=== PATIENT | female | born 1975 | race Caucasian/White ===

== ENCOUNTER 2025-03-17 23:25 | Emergency (ER) | payer OTHER, SELFPAY ==
[~2025-03-17] VITALS: Ht 157.5 cm; Wt 84.1 kg
[~2025-03-17 23:25] MED LIST: NOCURR
[2025-03-18 00:01] VITALS: TEMP 98.2
[2025-03-18 02:30] VITALS: BP 128/90; PULSE 85; RESP 16; O2SAT 100
== END 2025-03-18 02:43 ==
LOC: EMS 23:25
DX: T18.5XXA Foreign body in anus and rectum, initial encounter (principal); F15.90 Other stimulant use, unspecified, uncomplicated; Z02.89 Encounter for other administrative examinations; Z91.030 Bee allergy status; W44.8XXA Other foreign body entering into or through a natural orifice, initial encounter; Y93.89 Activity, other specified; Y92.89 Other specified places as the place of occurrence of the external cause; Y99.8 Other external cause status
CPT/HCPCS: 74176; 99284; Z7502